=== PATIENT | male | born 1975 | race Caucasian/White ===

== ENCOUNTER → 2016-07-10 | Outpatient (CLI) | payer BC ==
[2016-07-10 08:32] LABS: ABSOLUTE EOSINOPHILS # (AUTO) 0.2 10^3/uL (0.0-0.6); ABSOLUTE MONOCYTES (AUTO) 0.7 10^3/uL (0.1-1.4); ABSOLUTE NEUT (AUTO) 5.7 10^3/uL (1.7-8.2); BASOPHILS % (AUTO) 0.5 % (0-2); EOSINOPHILS % (AUTO) 1.7 % (0-6); HEMATOCRIT 39.9 % (37.9-51.0); HEMOGLOBIN 13.6 g/dL (13.5-17.0); HGB HCT DIFFERENCE 0.9; LYMPHOCYTES % (AUTO) 31.5 % (13-45); MEAN CORPUSCULAR HEMOGLOBIN 31.1 pg (27.0-33.4); MEAN CORPUSCULAR HGB CONC 34.1 g/dL (32.0-36.0); MEAN CORPUSCULAR VOLUME 91 fl (80-97); RED BLOOD COUNT 4.38 10^6/uL (4.35-5.55); RED CELL DISTRIBUTION WIDTH 12.9 % (11.5-14.0); SEGMENTED NEUTROPHILS % (AUTO) 59.3 % (42-78); WHITE BLOOD COUNT 9.6 10^3/uL (4.0-10.5)
[2016-07-10 09:00] LABS: ALANINE AMINOTRANSFERASE 23 U/L (21-72); ALBUMIN 4.1 g/dL (3.5-5.0); ALKALINE PHOSPHATASE 61 U/L (38-126); ANION GAP 9 (5-19); ASPARTATE AMINO TRANSFERASE 18 U/L (17-59); BILIRUBIN,DIRECT 0.3 mg/dL (0.0-0.4); BILIRUBIN,TOTAL 0.6 mg/dL (0.2-1.3); BLOOD UREA NITROGEN 11 mg/dL (7-20); CARBON DIOXIDE 31 mmol/L (22-30); CHLORIDE 105 mmol/L (98-107); CHOLESTEROL 148.75 mg/dL (0-200); CREATININE RESULT 0.74 mg/dL (0.52-1.25); Direct HDL 38 mg/dL (>40); GLUCOSE 115 mg/dL (75-110); POTASSIUM 3.7 mmol/L (3.6-5.0); SODIUM 144.5 mmol/L (137-145); TOTAL PROTEIN 6.9 g/dL (6.3-8.2); TRIGLYCERIDES 75 mg/dL (<150)
[2016-07-10 09:13] LABS: DIRECT LDL 97 mg/dL (<100)
== END ==
LOC: OD 07:56
PROVIDERS: ATTEND Family Medicine
DX: Z13.220 Encounter for screening for lipoid disorders (principal); Z79.1 Long term (current) use of non-steroidal anti-inflammatories (NSAID); M54.2 Cervicalgia; M54.5 Low back pain
CPT/HCPCS: 36415; 72052; 72114; 80053; 80061; 85025

== ENCOUNTER 2016-07-29 08:03 | Day surgery (SDC) | payer BC ==
[2016-07-29] MEDS ORDERED: ONDANSETRON HCL INJ/PF 4 MG/2 ML SDV ONE (09:29)
[2016-07-29] MEDS ORDERED: NALOXONE HCL INJ/PF 0.4 MG/1 ML SDV ONE (09:30)
[2016-07-29] MEDS ORDERED: GLYCOPYRROLATE INJ 0.4 MG/2 ML VIAL ONE (09:30)
[2016-07-29] MEDS ORDERED: FLUMAZENIL INJ 0.5 MG/5 ML VIAL IV ONE (09:31)
[2016-07-29] MEDS ORDERED: MIDAZOLAM 2 MG/2 ML INJ ONE (09:31)
[2016-07-29] MEDS ORDERED: EPINEPHRINE INJ 1 MG/10 ML DISP.SYRIN ONE (09:32)
[2016-07-29] MEDS ORDERED: GLUCAGON,HUMAN RECOMB 1 MG INJ ONE (09:32)
[2016-07-29] MEDS: MIDAZOLAM 2 MG/2 ML INJ ONE ×2 (09:41→09:45)
[2016-07-29] MEDS: FENTANYL CITRATE INJ/PF 100 MCG/2 ML AMPUL ONE ×3 (09:43→10:00)
--- NOTE | 2016-07-29 10:46 | PDOC DISCHARGE SUMMARY ---
Discharge Summary (SDC) - Discharge Final Diagnosis: Anal canal polyp, 3 column internal hemorrhoids. Date of Surgery: 07/29/16 Discharge Date: 07/29/16 Condition: Good Treatment or Instructions: Colonoscopy with snare polypectomy of anal canal polyp. Anoscopy with hemorrhoidal banding 3. Prescriptions: Docusate Sodium [Colace 100 mg Capsule] 100 mg PO BID #60 capsule Oxycodone HCl/Acetaminophen [Percocet 5-325 mg Tablet] 1 tab PO ASDIR PRN #25 tablet PRN Reason: Discharge Diet: As Tolerated Discharge Activity: Activity As Tolerated - Stay active but avoid strenuous activity. Report the Following to Your Physician Immediately: Fever over 101 Degrees, Unusual Bleeding - Normal to have small amounts of bleeding., Drainage-Foul Smelling Other Items to Report to MD: inability to urinate
[2016-07-29 11:22] VITALS: BP 121/71
--- NOTE | 2016-08-05 08:20 | Operative Report ---
Operative Report DATE OF SURGERY: 07/29/16 PREOPERATIVE DIAGNOSIS: Blood per rectum, internal hemorrhoids, anal canal polyp POSTOPERATIVE DIAGNOSIS: Same. OPERATION: Colonoscopy. Snare polypectomy of anal canal polyp. Anoscopy with hemorrhoidal banding 3. SURGEON: TIAGO SHABAZZ ANESTHESIA: Moderate Sedation TISSUE REMOVED OR ALTERED: Anal canal polyp. COMPLICATIONS: None ESTIMATED BLOOD LOSS: minimal INTRAOPERATIVE FINDINGS: Posterior anal canal pedunculated polyp about a centimeter in size. Prominent 3 column internal hemorrhoids. PROCEDURE: Informed consent was obtained. Patient was brought to the endoscopy suite. IV sedation with Versed and fentanyl was administered. Digital rectal exam revealed the perianal skin tags. Patient also had a posterior anal pedunculated polyp high up in the anal canal. Endoscope was passed via the patient's anus it was fed to the cecum. There was a copious amount of liquid stool throughout the colon requiring irrigation and aspiration to obtain good visualization. The cecum, right colon, transverse colon, descending colon, sigmoid colon, and the rectum were all normal. Retroflexed view demonstrated a posterior anal canal polyp. Snare polypectomy was performed. The specimen was retrieved. Anoscopy demonstrated prominent 3 column internal hemorrhoids. The right anterior, right posterior, and the left lateral internal hemorrhoidal complexes were banded in sequence with the suction banding device. Great care was taken to place the bands above the level of the dentate line. Patient tolerated procedure well with no apparent complications.
== END 2016-07-29 11:30 | disposition home or self-care (01) ==
LOC: END 08:03
PROVIDERS: ATTEND Surgery
PROC: 0DBQ8ZX Excision of Anus, Via Natural or Artificial Opening Endoscopic, Diagnostic (ICD-10-PCS; principal; 2016-07-29 09:30)
PROC: 06LY0CC Occlusion of Hemorrhoidal Plexus with Extraluminal Device, Open Approach (ICD-10-PCS; 2016-07-29 09:30)
DX: K62.5 Hemorrhage of anus and rectum (principal); K64.8 Other hemorrhoids; Z79.891 Long term (current) use of opiate analgesic; Z79.899 Other long term (current) drug therapy; Z87.891 Personal history of nicotine dependence
CPT/HCPCS: 45385; 46221; 88304 ×2; J2250; J3010; J0171; J1610; J2310; J2405; J3490

== ENCOUNTER → 2017-07-22 | Outpatient (CLI) | payer BC ==
--- NOTE | 2017-07-22 12:07 | RADIOLOGY REPORT (SQ) ---
EXAM DESCRIPTION: TOES RIGHT COMPLETED DATE/TIME: 07/22/2017 11:28 am REASON FOR STUDY: IDIOPATHIC GOUT, RIGHT ANKLE AND FOOT M10.071 IDIOPATHIC GOUT, RIGHT ANKLE AND FO OT M25.562 PAIN IN LEFT KNEE S47.2XXS CRUSHING INJURY OF LEFT SHOULDER AND UPPER ARM, SEQ COMPARISON: None. NUMBER OF VIEWS: Three views. TECHNIQUE: AP, lateral, and oblique images acquired of the right first toe. LIMITATIONS: None. FINDINGS: MINERALIZATION: Normal. BONES: No acute fracture or dislocation. No worrisome bone lesions. No significant osteophytes. JOINTS: Mild hallux valgus. No erosions. No alanis-articular osteopenia. No chondrocalcinosis. SOFT TISSUES: No swelling. No calcifications. OTHER: No other significant finding. IMPRESSION: No acute findings. COMMENT: SITE OF TRAUMA/COMPLAINT MARKED/STAMP COMPLETED: YES. TECHNICAL DOCUMENTATION: JOB ID: [id number] [employer]- All Rights Reserved Reading location - IP/workstation name: [email or web address]
--- NOTE | 2017-07-22 12:19 | RADIOLOGY REPORT (SQ) ---
EXAM DESCRIPTION: KNEE LEFT 2 VIEWS COMPLETED DATE/TIME: 07/22/2017 11:28 am REASON FOR STUDY: PAIN IN LEFT KNEE M10.071 IDIOPATHIC GOUT, RIGHT ANKLE AND FOOT M25.562 PAIN IN LEFT KNEE S47.2XXS CRUSHING INJURY OF LEFT SHOULDER AND UPPER ARM, SEQ COMPARISON: None. NUMBER OF VIEWS: Two views TECHNIQUE: AP and lateral radiographic images acquired of the left knee. LIMITATIONS: None. FINDINGS: MINERALIZATION: Normal. BONES: No acute fracture or dislocation. No worrisome bone lesions. JOINT: No effusion. SOFT TISSUES: No soft tissue swelling. No radio-opaque foreign body. OTHER: No other significant finding. IMPRESSION: NEGATIVE STUDY OF THE LEFT KNEE. NO RADIOGRAPHIC EVIDENCE OF ACUTE INJURY. TECHNICAL DOCUMENTATION: JOB ID: [id number] [employer]- All Rights Reserved Reading location - IP/workstation name: [email or web address]
--- NOTE | 2017-07-22 13:01 | RADIOLOGY REPORT (SQ) ---
EXAM DESCRIPTION: SHOULDER LEFT 2 OR MORE VIEWS COMPLETED DATE/TIME: 07/22/2017 11:28 am REASON FOR STUDY: CRUSHING INJURY OF LEFT SHOULDER AND UPPER ARM, SEQUELA COMPARISON: None. NUMBER OF VIEWS: Three views left shoulder. LIMITATIONS: None. FINDINGS: There is no acute or significant bone, joint or soft tissue abnormality. OTHER: No other significant finding. IMPRESSION: NORMAL STUDY. TECHNICAL DOCUMENTATION: JOB ID: [id number] Reading location - IP/workstation name: [email or web address]
== END ==
LOC: OD 11:02
PROVIDERS: ATTEND Family Medicine
DX: M10.071 Idiopathic gout, right ankle and foot (principal); M25.562 Pain in left knee; S47 Crushing injury of shoulder and upper arm; X58.XXXS Exposure to other specified factors, sequela